=== PATIENT | female | born 1945 | race Caucasian/White ===

== ENCOUNTER 2021-05-07 14:13 | Inpatient (IN) | payer OTHER, BC ==
[2021-05-07 16:05] LABS: BASO % 0.3 % (0-2.0); HEMATOCRIT 40.9 % (32.4-45.2); HEMOGLOBIN 14.2 GM/dL (10.7-15.3); LYMPH % 3.7 % (8-40); MCH 30.5 pg (25.7-33.7); MCHC 34.7 g/dl (32.0-36.0); MEAN CELL VOLUME 87.8 fl (80-96); MEAN PLT VOLUME 10.1 fl (7.5-11.1); MONO % 6.4 % (3.8-10.2); NEUT % 89.6 % (42.8-82.8); PLATELET COUNT 125 10^3/uL (134-434); RBC 4.66 M/mm3 (3.60-5.2); RDW 12.9 % (11.6-15.6); WHITE BLOOD COUNT 18.8 K/mm3 (4.0-10.0)
[2021-05-07 16:19] LABS: BLOOD UREA NITROGEN 24.8 mg/dL (7-18); CALCIUM 8.9 mg/dL (8.5-10.1)
[2021-05-07 16:20] LABS: MAGNESIUM 2.2 mg/dL (1.8-2.4)
[2021-05-07 16:23] LABS: CREATININE 0.8 mg/dL (0.55-1.3)
[2021-05-07 16:24] LABS: TOT PROT 7.3 g/dl (6.4-8.2)
[2021-05-07] MEDS ORDERED: SODIUM CHLORIDE 0.9% 500 ML INFUS.BAG IV ONE (16:26)
[2021-05-07 19:35] LABS: EPI CELLS 6 /uL (0-25.1); HYALINE CASTS 3 /uL (0-3.1); PH,URINE 5.5 (5.0-8.0); URINE APPEARANCE CLEAR; URINE BACTERIA 7 /uL (0-1359); URINE BILIRUBIN NEGATIVE (NEGATIVE); URINE COLOR YELLOW; URINE GLUCOSE (UA) NEGATIVE (NEGATIVE); URINE KETONE TRACE (NEGATIVE); URINE LEUK ESTERASE NEGATIVE (NEGATIVE); URINE NITRITE NEGATIVE (NEGATIVE); URINE PROTEIN 1+ (NEGATIVE); URINE RBC 34 /uL (0-23.9); URINE WBC 14 /uL (0-25.8)
[2021-05-07] MEDS ORDERED: ATORVASTATIN CA 40 MG TABLET (FP) PO SCH (22:00)
[2021-05-08 01:13] LABS: CHLORIDE 108 mmol/L (98-107); SODIUM 141 mmol/L (136-145)
[2021-05-08 01:15] LABS: ALBUMIN 3.4 g/dl (3.4-5.0); ANION GAP 9 MMOL/L (8-16); CALCIUM 8.4 mg/dL (8.5-10.1); CO2 24 mmol/L (21-32)
[2021-05-08 01:16] LABS: BLOOD UREA NITROGEN 28.5 mg/dL (7-18); GLUCOSE,RANDOM 149 mg/dL (74-106)
[2021-05-08 01:19] LABS: CREATININE 0.9 mg/dL (0.55-1.3); SGOT/AST 30 U/L (15-37); SGPT/ALT 27 U/L (13-61)
[2021-05-08 01:20] LABS: BILIRUBIN,TOTAL 1.6 mg/dL (0.2-1); TOT PROT 6.3 g/dl (6.4-8.2)
[2021-05-08 01:21] LABS: ALK PHOS 111 U/L (45-117)
[2021-05-08 01:40] VITALS: BMI 25.1
[2021-05-08 04:32] LABS: CHLORIDE 108 mmol/L (98-107); SODIUM 142 mmol/L (136-145)
[2021-05-08 04:34] LABS: CALCIUM 8.7 mg/dL (8.5-10.1)
[2021-05-08 04:35] LABS: ALBUMIN 3.6 g/dl (3.4-5.0); ANION GAP 4 MMOL/L (8-16); BLOOD UREA NITROGEN 27.1 mg/dL (7-18); CO2 29 mmol/L (21-32); GLUCOSE,RANDOM 94 mg/dL (74-106); MAGNESIUM 2.3 mg/dL (1.8-2.4)
[2021-05-08 04:38] LABS: CREATININE 0.7 mg/dL (0.55-1.3); PHOSPHOROUS 3.2 mg/dL (2.5-4.9); SGOT/AST 43 U/L (15-37); SGPT/ALT 29 U/L (13-61); TRIGLYCERIDES 107 mg/dL (0-150)
[2021-05-08 04:39] LABS: BILIRUBIN,TOTAL 2.1 mg/dL (0.2-1); CHOLESTEROL 149 mg/dL (50-200); LDL CHOLESTEROL (ONLY SJRH) 83 mg/dL (5-100); TOT PROT 6.8 g/dl (6.4-8.2)
[2021-05-08 04:40] LABS: ALK PHOS 117 U/L (45-117); HDL CHOLESTEROL 45 mg/dL (40-60)
[2021-05-08 08:23] LABS: BASO % 0.3 % (0-2.0); EOS % 0.1 % (0-4.5); HEMATOCRIT 38.6 % (32.4-45.2); HEMOGLOBIN 13.3 GM/dL (10.7-15.3); LYMPH % 7.8 % (8-40); MCH 30.8 pg (25.7-33.7); MCHC 34.5 g/dl (32.0-36.0); MEAN CELL VOLUME 89.3 fl (80-96); MONO % 5.5 % (3.8-10.2); NEUT % 86.3 % (42.8-82.8); PLATELET COUNT 109 10^3/uL (134-434); RBC 4.32 M/mm3 (3.60-5.2); RDW 13.1 % (11.6-15.6); WHITE BLOOD COUNT 14.8 K/mm3 (4.0-10.0)
[2021-05-08 08:39] LABS: CALCIUM 8.9 mg/dL (8.5-10.1)
[2021-05-08 08:41] LABS: MAGNESIUM 2.4 mg/dL (1.8-2.4)
[2021-05-08 08:42] LABS: ALBUMIN 3.6 g/dl (3.4-5.0); BLOOD UREA NITROGEN 27.1 mg/dL (7-18)
[2021-05-08 08:45] LABS: PHOSPHOROUS 2.6 mg/dL (2.5-4.9)
[2021-05-08 08:46] LABS: BILIRUBIN,TOTAL 2.6 mg/dL (0.2-1); CREATININE 0.7 mg/dL (0.55-1.3)
[2021-05-08] MEDS: metoPROLOL SUCCINATE 25 MG TAB.SR.24H (FP) PO SCH (11:04)
[2021-05-08] MEDS: SODIUM CHLORIDE 1,000 ML IV SCH (13:20)
[2021-05-08] MEDS: CLOPIDOGREL BISULFATE 75 MG TABLET (FP) PO SCH (17:57)
[2021-05-08] MEDS: ASPIRIN COATED 81 MG TABLET.EC PO SCH (17:57)
[2021-05-09 08:16] LABS: BASO % 0.5 % (0-2.0); EOS % 0.4 % (0-4.5); HEMATOCRIT 33.8 % (32.4-45.2); HEMOGLOBIN 11.8 GM/dL (10.7-15.3); MCH 30.5 pg (25.7-33.7); MCHC 34.9 g/dl (32.0-36.0); MEAN CELL VOLUME 87.4 fl (80-96); MEAN PLT VOLUME 10.8 fl (7.5-11.1); MONO % 7.3 % (3.8-10.2); NEUT % 79.8 % (42.8-82.8); PLATELET COUNT 99 10^3/uL (134-434); RBC 3.86 M/mm3 (3.60-5.2); RDW 13.1 % (11.6-15.6); WHITE BLOOD COUNT 10.2 K/mm3 (4.0-10.0)
[2021-05-09 08:30] LABS: BLOOD UREA NITROGEN 26.6 mg/dL (7-18); CALCIUM 8.1 mg/dL (8.5-10.1); MAGNESIUM 2.2 mg/dL (1.8-2.4)
[2021-05-09 08:33] LABS: CREATININE 0.6 mg/dL (0.55-1.3)
[2021-05-09 08:35] LABS: BILIRUBIN,TOTAL 2.4 mg/dL (0.2-1); TOT PROT 6.1 g/dl (6.4-8.2)
[2021-05-09] MEDS: metoPROLOL SUCCINATE 25 MG TAB.SR.24H (FP) PO SCH (10:08)
[2021-05-09] MEDS: ASPIRIN COATED 81 MG TABLET.EC PO SCH (10:08)
[2021-05-09] MEDS: CLOPIDOGREL BISULFATE 75 MG TABLET (FP) PO SCH (10:08)
[2021-05-09] MEDS ORDERED: LOPERAMIDE HCL 2 MG CAPSULE PO PRN (10:11)
[2021-05-09] MEDS: guaiFENesin 200 MG/10 ML 10 ML UNIT-DOSE CUPS PO PRN ×2 (12:43→21:54)
[2021-05-09] MEDS: ACETAMINOPHEN 325 MG TABLET (FP) PO PRN (21:51)
[2021-05-09] MEDS: ATORVASTATIN CA 40 MG TABLET (FP) PO SCH (21:51)
[2021-05-09] MEDS: SODIUM CHLORIDE 1,000 ML IV SCH (22:04)
[2021-05-10] MEDS ORDERED: MELATONIN 1 MG TABLET PO ONE (00:07)
[2021-05-10 08:50] LABS: BASO % 0.6 % (0-2.0); EOS % 0.9 % (0-4.5); HEMOGLOBIN 12.5 GM/dL (10.7-15.3); MCH 30.5 pg (25.7-33.7); MCHC 34.7 g/dl (32.0-36.0); MEAN PLT VOLUME 10.6 fl (7.5-11.1); MONO % 9.3 % (3.8-10.2); NEUT % 75.2 % (42.8-82.8); PLATELET COUNT 114 10^3/uL (134-434); RBC 4.09 M/mm3 (3.60-5.2); RDW 13.2 % (11.6-15.6); WHITE BLOOD COUNT 8.7 K/mm3 (4.0-10.0)
[2021-05-10 09:20] LABS: CREATININE 0.5 mg/dL (0.55-1.3)
[2021-05-10 09:21] LABS: BLOOD UREA NITROGEN 16.4 mg/dL (7-18); CALCIUM 8.2 mg/dL (8.5-10.1)
[2021-05-10 09:22] LABS: BILIRUBIN,TOTAL 1.7 mg/dL (0.2-1); MAGNESIUM 2.1 mg/dL (1.8-2.4); TOT PROT 6.1 g/dl (6.4-8.2)
[2021-05-10] MEDS: metoPROLOL SUCCINATE 25 MG TAB.SR.24H (FP) PO SCH (09:24)
[2021-05-10] MEDS: ASPIRIN COATED 81 MG TABLET.EC PO SCH (09:24)
[2021-05-10] MEDS: CLOPIDOGREL BISULFATE 75 MG TABLET (FP) PO SCH (09:24)
[2021-05-10] MEDS: ACETAMINOPHEN 325 MG TABLET (FP) PO PRN (13:56)
[2021-05-10] MEDS: ATORVASTATIN CA 40 MG TABLET (FP) PO SCH (22:11)
[2021-05-11 09:06] LABS: BASO % 0.7 % (0-2.0); HEMATOCRIT 35.2 % (32.4-45.2); HEMOGLOBIN 12.5 GM/dL (10.7-15.3); LYMPH % 15.3 % (8-40); MCH 30.3 pg (25.7-33.7); MCHC 35.4 g/dl (32.0-36.0); MEAN CELL VOLUME 85.6 fl (80-96); MEAN PLT VOLUME 10.6 fl (7.5-11.1); MONO % 10.7 % (3.8-10.2); NEUT % 72.3 % (42.8-82.8); PLATELET COUNT 154 10^3/uL (134-434); RBC 4.11 M/mm3 (3.60-5.2); RDW 13.1 % (11.6-15.6); WHITE BLOOD COUNT 8.6 K/mm3 (4.0-10.0)
[2021-05-11 09:29] LABS: BLOOD UREA NITROGEN 11.3 mg/dL (7-18); CALCIUM 8.5 mg/dL (8.5-10.1)
[2021-05-11] MEDS ORDERED: REGADENOSON 0.4 MG/5 ML PRE-FILLED SYRINGE IVPUSH ONE ×2 (09:29→10:15)
[2021-05-11 09:30] LABS: ALBUMIN 3.1 g/dl (3.4-5.0); MAGNESIUM 2.3 mg/dL (1.8-2.4)
[2021-05-11 09:33] LABS: CREATININE 0.5 mg/dL (0.55-1.3)
[2021-05-11 09:35] LABS: BILIRUBIN,TOTAL 1.2 mg/dL (0.2-1); TOT PROT 6.5 g/dl (6.4-8.2)
[2021-05-11] MEDS: ASPIRIN COATED 81 MG TABLET.EC PO SCH ×2 (11:18→13:24)
[2021-05-11] MEDS: CLOPIDOGREL BISULFATE 75 MG TABLET (FP) PO SCH ×2 (11:18→13:24)
[2021-05-11] MEDS: metoPROLOL SUCCINATE 25 MG TAB.SR.24H (FP) PO SCH ×2 (11:19→13:24)
[2021-05-11] MEDS: ACETAMINOPHEN 325 MG TABLET (FP) PO PRN (12:52)
[2021-05-11 14:34] VITALS: BP 151/77; PULSE 82; TEMP 98.2
== END 2021-05-11 19:14 | disposition home or self-care (01) | DRG 91 ==
LOC: JER 14:13 → JERBED 18:07 → J4W 21:28
PROVIDERS: ADMIT Internal Medicine; ATTEND Nurse Practitioner Family
DX: T85.09XA Other mechanical complication of ventricular intracranial (communicating) shunt, initial encounter (principal); I21.4 Non-ST elevation (NSTEMI) myocardial infarction; G91.2 (Idiopathic) normal pressure hydrocephalus; G91.8 Other hydrocephalus; M62.82 Rhabdomyolysis; E78.5 Hyperlipidemia, unspecified; I25.10 Atherosclerotic heart disease of native coronary artery without angina pectoris; D72.829 Elevated white blood cell count, unspecified; Y83.9 Surgical procedure, unspecified as the cause of abnormal reaction of the patient, or of later complication, without mention of misadventure at the time of the procedure; D69.6 Thrombocytopenia, unspecified; Z98.61 Coronary angioplasty status
CPT/HCPCS: 36415; 70450-TC; 71046-TC-FY; 74018-TC-FY; 78452-TC; 80053; 80061; 81003; 82550; 82553; 83036; 83735; 84100; 84484; 85025; 87040; 87086; 93005; 93010; 93017; 97116-GP; 97161-GP; 99285-25; A9502; C9803; J2785; U0003; U0005